=== PATIENT | female | born 1990 | race Caucasian/White ===

== ENCOUNTER → 2016-10-07 | Outpatient (REF) | payer MEDICAID ==
[2016-10-07 13:31] LABS: MEAN CORPUSCULAR HGB CONC 32.6 g/dl (32.0-36.5); WHITE BLOOD COUNT 5.3 K/mm3 (4.0-10.0)
[2016-10-07 14:44] LABS: HIV SCREEN CENTAUR NEGATIVE (NEGATIVE)
== END ==
LOC: M LAB REF 12:49
PROVIDERS: ATTEND Obstetrics & Gynecology
DX: Z32.01 Encounter for pregnancy test, result positive (principal); Z3A.00 Weeks of gestation of pregnancy not specified

== ENCOUNTER → 2016-11-11 | Outpatient (REF) | payer OTHER | LOC: M LAB REF 13:21 | PROVIDERS: ATTEND Advanced Practice Midwife | DX: Z36 Encounter for antenatal screening of mother (principal); Z3A.00 Weeks of gestation of pregnancy not specified ==

== ENCOUNTER → 2016-11-12 | Outpatient (CLI) | payer OTHER ==
[2016-11-12 16:42] LABS: MEAN CORPUSCULAR HEMOGLOBIN 29.7 pg (27.0-33.0); MEAN CORPUSCULAR HGB CONC 33.8 g/dl (32.0-36.5); MEAN CORPUSCULAR VOLUME 87.9 fl (80.0-96.0); WHITE BLOOD COUNT 7.6 K/mm3 (4.0-10.0)
[2016-11-12 16:50] LABS: ALBUMIN 3.7 GM/DL (3.2-5.2); ALBUMIN/GLOBULIN RATIO 1.28 (1.00-1.93); ALKALINE PHOSPHATASE 53 U/L (45-117); ALT/SGPT 15 U/L (12-78); ANION GAP 9 MEQ/L (8-16); AST/SGOT 6 U/L (15-37); BILIRUBIN,TOTAL 0.3 MG/DL (0.2-1.0); BLOOD UREA NITROGEN 6 MG/DL (7-18); CALCIUM LEVEL 8.6 MG/DL (8.5-10.1); CARBON DIOXIDE LEVEL 24 MEQ/L (21-32); CHLORIDE LEVEL 105 MEQ/L (98-107); CREATININE FOR GFR 0.57 MG/DL (0.55-1.02); GLOMERULAR FILTRATION RATE > 60.0 (>60); GLUCOSE, FASTING 95 MG/DL (70-105); POTASSIUM SERUM 3.7 MEQ/L (3.5-5.1); SODIUM LEVEL 138 MEQ/L (136-145); TOTAL PROTEIN 6.6 GM/DL (6.4-8.2); URIC ACID 3.3 MG/DL (2.6-6.0)
== END ==
LOC: M LAB 16:01
PROVIDERS: ATTEND Advanced Practice Midwife
DX: Z36 Encounter for antenatal screening of mother (principal); Z3A.00 Weeks of gestation of pregnancy not specified

== ENCOUNTER → 2017-03-10 | Outpatient (CLI) | payer OTHER ==
[~2017-03-10] MED LIST: AUGM500T34 PO; LABE30TA PO; MOTR200T44 PO; PRENTAB9 PO; TYLE325T5 PO
[2017-03-10 10:44] LABS: MEAN CORPUSCULAR VOLUME 88.1 fl (80.0-96.0); RED CELL DISTRIBUTION WIDTH 12.6 % (11.5-14.5); WHITE BLOOD COUNT 7.9 K/mm3 (4.0-10.0)
== END ==
LOC: M LAB 09:25
PROVIDERS: ATTEND Advanced Practice Midwife
DX: Z36 Encounter for antenatal screening of mother (principal); Z3A.00 Weeks of gestation of pregnancy not specified

== ENCOUNTER 2017-03-27 14:24 | Emergency (ER) | payer OTHER ==
[~2017-03-27] VITALS: Ht 170.2 cm; Wt 95.5 kg
[2017-03-27] MEDS ORDERED: AUGM500T34 PO (16:22)
--- NOTE | 2017-03-27 16:29 | REP ---
Clinical: Trauma. Technique: AP, lateral views of the left wrist. Findings: Lateral view best demonstrates soft tissue swelling. No definite acute fracture is appreciated although injury involving the distal radius cannot be excluded and should be correlated with point of tenderness and mechanism of injury. The carpal bones appear intact. Impression: No definite acute fracture. Soft tissue swelling is appreciated. As above. If the patient remains symptomatic consider reevaluation in 5-7 days. Signed by Manas Mcallister MD 03/27/2017 04:20 P
[2017-03-27] MEDS ORDERED: RABIES IMMUNE GLOBULIN 1500 INTERNATIONAL UNITS/10 ML VIAL (90375) IM ONE (16:30)
[2017-03-27] MEDS ORDERED: RABIES VACCINE HUMAN 2.5 INTERNATIONAL UNITS/ML VIAL (90675) IM ONE (16:30)
[2017-03-27] MEDS ORDERED: ADACEL/BOOSTRIX VACCINE (DIPHTH/PERTUSS/ACELL/TETANUS)0.5ML SYR (90715) IM ONE (16:30)
[2017-03-27 19:01] VITALS: BP 128/70
[2017-05-25] MEDS ORDERED: TYLE325T5 PO (09:55)
[2017-05-25] MEDS ORDERED: MOTR200T44 PO (09:55)
== END 2017-03-27 19:02 | disposition home or self-care (01) ==
LOC: M ED 14:24
DX: O9A.213 Injury, poisoning and certain other consequences of external causes complicating pregnancy, third trimester (principal); S61.552A Open bite of left wrist, initial encounter; W54.0XXA Bitten by dog, initial encounter; Y92.410 Unspecified street and highway as the place of occurrence of the external cause; Y93.89 Activity, other specified; Y99.8 Other external cause status; Z3A.30 30 weeks gestation of pregnancy

== ENCOUNTER 2017-03-29 16:52 | Emergency (ER) | payer OTHER ==
[~2017-03-29] VITALS: Ht 172.7 cm; Wt 101.0 kg
[~2017-03-29 16:52] MED LIST changes: -LABE30TA PO; -MOTR200T44 PO; -PRENTAB9 PO; -TYLE325T5 PO
[2017-03-29 19:38] VITALS: BP 123/76
--- NOTE | 2017-03-29 19:46 | ED PDOC ---
Post-Departure Follow-Up pt has arrived one day early for her rabies prophylaxis Guilherme Barriga Mar 29, 2017 19:46
[2017-05-25] MEDS ORDERED: MOTR200T44 PO (09:55)
[2017-05-25] MEDS ORDERED: TYLE325T5 PO (09:55)
== END 2017-03-29 19:52 | disposition home or self-care (01) ==
LOC: M ED 16:52
DX: S51.852D Open bite of left forearm, subsequent encounter (principal); S61.451D Open bite of right hand, subsequent encounter; W54.0XXD Bitten by dog, subsequent encounter; Y92.89 Other specified places as the place of occurrence of the external cause; Z79.2 Long term (current) use of antibiotics

== ENCOUNTER → 2017-05-05 | Outpatient (REF) | payer OTHER ==
[~2017-05-05] MED LIST changes: +LABE30TA PO; +MOTR200T44 PO; +PRENTAB9 PO; +TYLE325T5 PO
== END ==
LOC: M LAB REF 13:18
PROVIDERS: ATTEND Advanced Practice Midwife
DX: Z36.89 Encounter for other specified antenatal screening (principal); Z3A.39 39 weeks gestation of pregnancy

== ENCOUNTER 2017-05-08 16:37 | Outpatient (CLI) | payer OTHER ==
[~2017-05-08] VITALS: Ht 167.6 cm; Wt 95.0 kg
[~2017-05-08 16:37] MED LIST changes: -LABE30TA PO; -MOTR200T44 PO; -PRENTAB9 PO; -TYLE325T5 PO
[2017-05-08] MEDS ORDERED: PRENTAB9 PO (17:11)
[2017-05-08] MEDS ORDERED: LABE30TA PO (17:11)
[2017-05-08 17:33] VITALS: BP 127/78
[2017-05-08 17:43] LABS: MEAN CORPUSCULAR HEMOGLOBIN 29.6 pg (27.0-33.0); MEAN CORPUSCULAR HGB CONC 34.1 g/dl (32.0-36.5); MEAN CORPUSCULAR VOLUME 86.7 fl (80.0-96.0); PLATELET COUNT, AUTOMATED 292 10^3/uL (150-450); RED CELL DISTRIBUTION WIDTH 12.6 % (11.5-14.5); WHITE BLOOD COUNT 9.9 10^3/uL (4.0-10.0)
[2017-05-08 18:02] LABS: ALT/SGPT 17 U/L (12-78); AST/SGOT 12 U/L (15-37); BILIRUBIN,TOTAL 0.2 MG/DL (0.2-1.0); CREATININE FOR GFR 0.67 MG/DL (0.55-1.02); GLOMERULAR FILTRATION RATE > 60.0 (>60); URIC ACID 4.2 MG/DL (2.6-6.0)
[2017-05-25] MEDS ORDERED: TYLE325T5 PO (09:55)
[2017-05-25] MEDS ORDERED: MOTR200T44 PO (09:55)
== END 2017-05-08 18:35 | disposition home or self-care (01) ==
LOC: M LDO 16:37
PROVIDERS: ATTEND Advanced Practice Midwife
DX: O13.3 Gestational [pregnancy-induced] hypertension without significant proteinuria, third trimester (principal); O47.03 False labor before 37 completed weeks of gestation, third trimester; Z3A.36 36 weeks gestation of pregnancy

== ENCOUNTER → 2017-05-10 | Outpatient (REF) | payer OTHER ==
[~2017-05-10] MED LIST changes: +LABE30TA PO; +MOTR200T44 PO; +PRENTAB9 PO; +TYLE325T5 PO
== END ==
LOC: M LAB REF 11:45
PROVIDERS: ATTEND Advanced Practice Midwife
DX: O09.893 Supervision of other high risk pregnancies, third trimester (principal); Z36.89 Encounter for other specified antenatal screening; Z3A.36 36 weeks gestation of pregnancy

== ENCOUNTER → 2017-09-06 | Outpatient (REF) | payer SELFPAY ==
[2017-09-06 21:10] LABS: INFLUENZA A AMPLIFICATION NEGATIVE (NEGATIVE); INFLUENZA B AMPLIFICATION NEGATIVE (NEGATIVE)
== END ==
LOC: M LAB REF 09:22
DX: J11.1 Influenza due to unidentified influenza virus with other respiratory manifestations (principal)
CPT/HCPCS: 87502

== ENCOUNTER → 2019-01-25 | Outpatient (REF) | payer OTHER, MEDICAID ==
[~2019-01-25] MED LIST changes: +BUTACAP78 PO; +LABE20TAB PO; +LABE300T2 PO; -LABE30TA PO; +MAPA500T2 PO
== END ==
LOC: M LAB REF 13:15
PROVIDERS: ATTEND Obstetrics & Gynecology
DX: Z34.83 Encounter for supervision of other normal pregnancy, third trimester (principal); Z36.85 Encounter for antenatal screening for Streptococcus B

== ENCOUNTER → 2019-01-26 | Outpatient (CLI) | payer OTHER ==
[~2019-01-26] MED LIST changes: +IBUP80TA PO
[2019-01-26 16:51] LABS: ALT/SGPT 11 U/L (12-78); BILIRUBIN,TOTAL 0.3 MG/DL (0.2-1.0); CREATININE FOR GFR 0.74 MG/DL (0.55-1.30); GLOMERULAR FILTRATION RATE > 60.0 (>60); LDH LACTATE DEHYDROGENASE 118 U/L (84-246); URIC ACID 3.8 MG/DL (2.6-6.0)
[2019-01-26 20:06] LABS: URINE TOTAL PROTEIN 23.7 MG/DL (0-12)
== END ==
LOC: M LAB 14:26
PROVIDERS: ATTEND Obstetrics & Gynecology
DX: O14.93 Unspecified pre-eclampsia, third trimester (principal); Z3A.00 Weeks of gestation of pregnancy not specified

== ENCOUNTER 2019-01-28 09:35 | Outpatient (CLI) | payer OTHER ==
[2019-01-28] VITALS (11 sets, daily range): BP systolic 111–142; BP diastolic 58–76
[~2019-01-28] VITALS: Ht 170.2 cm; Wt 99.9 kg
[~2019-01-28 09:35] MED LIST changes: -BUTACAP78 PO; -IBUP80TA PO; -LABE20TAB PO; -MAPA500T2 PO
[2019-01-28] MEDS ORDERED: MAPA500T2 PO (10:01)
[2019-01-28] MEDS ORDERED: LABE20TAB PO (10:10)
[2019-01-28 10:57] LABS: BASO % 0.5 % (0.0-1.0); EOS # 0.1 10^3/uL (0.0-0.50); EOS % 0.7 % (0.0-3.0); HEMATOCRIT 30.1 % (36.0-47.0); HEMOGLOBIN 10.1 g/dl (12.0-15.5); LYMPH # 1.4 10^3/uL (1.5-6.5); LYMPH % 17.6 % (24.0-44.0); MEAN CORPUSCULAR HEMOGLOBIN 29.4 pg (27.0-33.0); MEAN CORPUSCULAR HGB CONC 33.6 g/dl (32.0-36.5); MEAN CORPUSCULAR VOLUME 87.8 fl (80.0-96.0); MONO # 0.6 10^3/uL (0.0-0.8); MONO % 7.9 % (0.0-5.0); NEUTROPHILS # 5.9 10^3/uL (1.8-7.7); NEUTROPHILS % 72.9 % (36.0-66.0); PLATELET COUNT, AUTOMATED 259 10^3/uL (150-450); RED BLOOD COUNT 3.43 10^6/uL (4.00-5.40); WHITE BLOOD COUNT 8.1 10^3/uL (4.0-10.0)
[2019-01-28 11:26] LABS: TOTAL PROTEIN,RANDOM URINE 30.1 MG/DL (0.0-12.0)
[2019-01-28 11:29] LABS: ALT/SGPT 11 U/L (12-78); BILIRUBIN,TOTAL 0.3 MG/DL (0.2-1.0); CREATININE FOR GFR 0.55 MG/DL (0.55-1.30); GLOMERULAR FILTRATION RATE > 60.0 (>60); LDH LACTATE DEHYDROGENASE 116 U/L (84-246); URIC ACID 3.4 MG/DL (2.6-6.0)
[2019-01-28] MEDS ORDERED: ACETAMINOPHEN 500 MG TAB PO ONE (14:30)
[2019-02-01] MEDS ORDERED: BUTACAP78 PO (13:31)
== END 2019-01-28 16:25 | disposition home or self-care (01) ==
LOC: M LDO 09:35
PROVIDERS: ATTEND Obstetrics & Gynecology
DX: O26.893 Other specified pregnancy related conditions, third trimester (principal); R51 Headache; R03.0 Elevated blood-pressure reading, without diagnosis of hypertension; Z3A.36 36 weeks gestation of pregnancy

== ENCOUNTER 2019-02-07 09:54 | Inpatient (IN) | payer OTHER ==
[~2019-02-07] VITALS: Ht 170.2 cm; Wt 101.3 kg
[2019-02-07] VITALS (10 sets, daily range): BP systolic 112–141; BP diastolic 60–79
[~2019-02-07 09:54] MED LIST changes: +BUTACAP78 PO; +LABE20TAB PO; +MAPA500T2 PO
[2019-02-07] MEDS ORDERED: miSOPROStol 50 MCG 1/2 TAB (S0191) PO ONE (11:00)
[2019-02-07] MEDS ORDERED: LACTATED RINGER'S 1000 ML IV ONE (11:00)
[2019-02-07 13:42] LABS: HEMATOCRIT 30.7 % (36.0-47.0); HEMOGLOBIN 10.1 g/dl (12.0-15.5); MEAN CORPUSCULAR HEMOGLOBIN 28.9 pg (27.0-33.0); MEAN CORPUSCULAR HGB CONC 32.9 g/dl (32.0-36.5); MEAN CORPUSCULAR VOLUME 87.7 fl (80.0-96.0); PLATELET COUNT, AUTOMATED 273 10^3/uL (150-450); WHITE BLOOD COUNT 8.6 10^3/uL (4.0-10.0)
[2019-02-07 14:02] LABS: ALT/SGPT 11 U/L (12-78); BILIRUBIN,TOTAL 0.5 MG/DL (0.2-1.0); CREATININE FOR GFR 0.57 MG/DL (0.55-1.30); GLOMERULAR FILTRATION RATE > 60.0 (>60); LDH LACTATE DEHYDROGENASE 128 U/L (84-246); URIC ACID 3.5 MG/DL (2.6-6.0)
[2019-02-07] MEDS: miSOPROStol 50 MCG 1/2 TAB (S0191) PO SCH ×2 (15:04→19:35)
[2019-02-07] MEDS: LR 1,000 ML IV SCH ×2 (16:15→23:21)
[2019-02-08] VITALS (52 sets, daily range): BP systolic 91–149; BP diastolic 50–86
[2019-02-08] MEDS ORDERED: OXYTOCIN DRIP 30 UNITS in APPROPRIATE DILUENT 1 EA IV SCH ×2 (07:00→15:31)
[2019-02-08] MEDS: LR 1,000 ML IV SCH ×2 (07:06→11:24)
[2019-02-08 07:33] LABS: MEAN CORPUSCULAR HEMOGLOBIN 28.4 pg (27.0-33.0); MEAN CORPUSCULAR HGB CONC 32.3 g/dl (32.0-36.5); MEAN CORPUSCULAR VOLUME 88.1 fl (80.0-96.0); PLATELET COUNT, AUTOMATED 243 10^3/uL (150-450); RED BLOOD COUNT 3.52 10^6/uL (4.00-5.40); WHITE BLOOD COUNT 8.7 10^3/uL (4.0-10.0)
[2019-02-08 07:54] LABS: ALT/SGPT 11 U/L (12-78); BILIRUBIN,TOTAL 0.5 MG/DL (0.2-1.0); CREATININE FOR GFR 0.51 MG/DL (0.55-1.30); GLOMERULAR FILTRATION RATE > 60.0 (>60); LDH LACTATE DEHYDROGENASE 124 U/L (84-246); URIC ACID 3.8 MG/DL (2.6-6.0)
[2019-02-08] MEDS ORDERED: FENTANYL 2MCG/ML ROPIVACAINE 0.2% IN 0.9% NACL 100ML IVBAG As Ordered ONE (11:03)
[2019-02-08] MEDS ORDERED: EPIDURAL/PCA KEYS XX PRN (13:15)
[2019-02-08] MEDS ORDERED: EPIDURAL COMMENT XX SCH (13:15)
[2019-02-08] MEDS ORDERED: LACTATED RINGER'S 1000 ML IV PRN (13:15)
[2019-02-08] MEDS ORDERED: REFRIGERATOR IV KEYS XX PRN (13:15)
[2019-02-08] MEDS ORDERED: NALOXONE INJ 0.4 MG/1 ML VIAL (J2310) IV PRN (13:15)
[2019-02-08] MEDS ORDERED: ONDANSETRON 4MG/2ML VIAL (J2405) IV PRN (13:15)
[2019-02-08] MEDS ORDERED: ePHEDrine SULFATE 25 MG/5 ML(5MG/ML) SYRINGE IV PRN (13:15)
[2019-02-08] MEDS ORDERED: diphenhydrAMINE INJ 50MG/ML VIAL (J1200) IV PRN (13:15)
[2019-02-08] MEDS ORDERED: FENTANYL/ROPIVACAINE/NACL BAG 100 ML EPIDURAL SCH (13:15)
--- NOTE | 2019-02-08 15:37 | DN ---
DATE: 02/07/2019 Emmy is a 28-year-old, 4, para 2-0-2-2 at 38-5/7 weeks gestation. She was admitted to labor and delivery for induction of labor due to preeclampsia. Misoprostol and IV Pitocin was used and labor did ensue. She did utilize an epidural for labor coping. She progressed to complete dilation at 1343 hours and pushed to a normal spontaneous vaginal delivery at 1505 hours. OA position with restitution to LOT position, nuchal cord times one tight, reduced with somersault maneuver at the time of delivery. female had mouth and nares bulb suctioned. She was then placed on maternal abdomen crying and active for maternal bonding. The cord was clamped times two once pulsations ceased and cut by the father of the baby under my direction. Spontaneous expulsion of an intact placenta with three-vessel cord by Webster mechanism was at 1510 hours. Uterine hemostasis achieved with IV Pitocin rapid infusion and uterine fundal massage. Estimated blood loss 350 mL. Perineum and vagina inspected and noted to have a first-degree midline laceration that was repaired with 3-0 Rapide in the usual fashion. Mom is going to breastfeed. The family have named her Janie. scores were 8 and 9. She weighed 7 pounds 9 ounces, 3430 grams. At the close of delivery, lap counts, needle counts, and instrument counts were correct and verified.
[2019-02-08] MEDS ORDERED: ACETAMINOPHEN TAB 650MG DOSE (2X325MG) PO PRN (15:45)
[2019-02-08] MEDS ORDERED: RHOGAM 300 MCG (1500 IU) INJ (J2790) IM SCH (15:45)
[2019-02-08] MEDS ORDERED: DOCUSATE SODIUM 100 MG CAP PO PRN (15:45)
[2019-02-08] MEDS ORDERED: ACETAMINOPHEN 500 MG TAB PO PRN (15:45)
[2019-02-08] MEDS ORDERED: IBUPROFEN 600 MG TAB PO PRN (15:45)
[2019-02-08] MEDS ORDERED: MEASLES,MUMPS,RUBELLA VACCINE INJ (MMR-II) (90707) SC SCH (15:45)
[2019-02-08] MEDS ORDERED: DIBUCAINE 1% OINTMENT 30GM TOP PRN (15:45)
[2019-02-08] MEDS ORDERED: SLF 3 ML SYR IV PRN (16:15)
[2019-02-08] MEDS: IBUPROFEN 800 MG TAB PO PRN (22:14)
[2019-02-08] MEDS: SLF 3 ML SYR IV SCH (22:15)
[2019-02-09 06:00] VITALS: BP 125/74
[2019-02-09] MEDS: IBUPROFEN 800 MG TAB PO PRN ×2 (06:29→19:29)
[2019-02-09] MEDS: SLF 3 ML SYR IV SCH ×2 (06:30→14:00)
--- NOTE | 2019-02-09 06:51 | IPNPDOC ---
Text Note Date of Service The patient was seen on 02/09/19. NOTE Feels well. Adequate pain management. Breast/bottle feeding. Voiding VSS, afebrile, normotensive Breasts soft, nipples intact Fundus firm, NT, down 1 FB Lochia rubra light without odor Perineum intact PP #1 Routine care. Anticipate D/C in am VS,Fishbone, I+O VS, Fishbone, I+O Laboratory Tests 02/08/19 07:17 Red Blood Count 3.52 L, Mean Corpuscular Volume 88.1, Mean Corpuscular Hemoglobin 28.4, Mean Corpuscular Hemoglobin Concent 32.3, Red Cell Distribution Width 12.5, Aspartate Amino Transf (AST/SGOT) 14, Alanine Aminotransferase (ALT/SGPT) 11 L, Lactate Dehydrogenase 124, Total Bilirubin 0.5, Uric Acid 3.8 Vital Signs Date Time Temp Pulse Resp B/P (MAP) Pulse Ox O2 Delivery O2 Flow Rate FiO2 02/09/19 06:00 97.9 63 18 125/74 (91) 02/08/19 08:36 100 I&O- Last 24 Hours up to 6 AM 02/09/19 06:00 Intake Total 3533.0 ml Output Total 1450 ml Balance 2083.0 ml Carla Mon CNM Feb 09, 2019 06:51
[2019-02-09] MEDS: PRENATAL VITAMINS CHEWABLE TABLET PO SCH (08:35)
[2019-02-09 18:24] VITALS: BP 135/80
[2019-02-10 06:25] VITALS: BP 139/76
[2019-02-10] MEDS: IBUPROFEN 800 MG TAB PO PRN (08:09)
[2019-02-10] MEDS: PRENATAL VITAMINS CHEWABLE TABLET PO SCH (08:09)
--- NOTE | 2019-02-10 11:20 | NUR ---
PPD#2 s/p Pain well controlled, voiding spontaneously, tolerating regular diet, ambulating without difficulty, lochia decreasing and minimal. No MARTINEZ,cp,sob. Breast feeding. VSS,normotensive, normal HR, afebrile Abd: soft,nt,nd Ext: no c/c/e A/P: PPD#2. Meeting d/c criteria. -Routine instructions/precautions reviewed. -Follow up in 6-8 weeks or sooner PRN. Darien Hardwick DO
[2019-02-10] MEDS ORDERED: IBUP80TA PO (11:22)
== END 2019-02-10 13:40 | disposition home or self-care (01) | DRG 560 ==
LOC: M LDI 09:54 → M OBS 02-08 18:08
PROVIDERS: ADMIT Obstetrics & Gynecology; ATTEND Advanced Practice Midwife
PROC: 3E0P7GC Introduction of Other Therapeutic Substance into Female Reproductive, Via Natural or Artificial Opening (ICD-10-PCS; 2019-02-07)
PROC: 10E0XZZ Delivery of Products of Conception, External Approach (ICD-10-PCS; principal; 2019-02-08)
PROC: 0HQ9XZZ Repair Perineum Skin, External Approach (ICD-10-PCS; 2019-02-08)
PROC: 10907ZC Drainage of Amniotic Fluid, Therapeutic from Products of Conception, Via Natural or Artificial Opening (ICD-10-PCS; 2019-02-08)
DX: O14.94 Unspecified pre-eclampsia, complicating childbirth (principal); Z3A.38 38 weeks gestation of pregnancy; Z37.0 Single live birth; O69.1XX0 Labor and delivery complicated by cord around neck, with compression, not applicable or unspecified; O70.0 First degree perineal laceration during delivery

== ENCOUNTER → 2019-06-26 | Outpatient (REF) | payer MEDICAID ==
[~2019-06-26] MED LIST changes: +IBUP80TA PO
== END ==
LOC: M LAB REF 17:03
PROVIDERS: ATTEND Nurse Practitioner Women's Health
DX: O36.80X0 Pregnancy with inconclusive fetal viability, not applicable or unspecified (principal)

== ENCOUNTER 2022-09-22 16:39 | Emergency (ER) | payer OTHER ==
[~2022-09-22] VITALS: Ht 170.2 cm; Wt 100.0 kg
[2022-09-22 16:39] VITALS: BP 148/79
[~2022-09-22 16:39] MED LIST changes: -LABE300T2 PO; +LABE300T55 PO
== END 2022-09-22 19:11 | disposition left against medical advice (07) ==
LOC: M ED 16:39
DX: R07.9 Chest pain, unspecified (principal); Z53.21 Procedure and treatment not carried out due to patient leaving prior to being seen by health care provider

== ENCOUNTER 2022-09-25 16:42 | Emergency (ER) | payer OTHER, SELFPAY ==
[~2022-09-25] VITALS: Ht 170.2 cm; Wt 98.6 kg
[2022-09-25 17:25] LABS: BASO # 0.1 10^3/uL (0.0-0.2); EOS # 0.1 10^3/uL (0.0-0.5); EOS % 1.9 % (0.0-3.0); HEMATOCRIT 29.4 % (36.0-47.0); HEMOGLOBIN 8.9 g/dl (12.0-15.5); MEAN CORPUSCULAR HEMOGLOBIN 24.7 pg (27.0-33.0); MEAN CORPUSCULAR HGB CONC 30.3 g/dl (32.0-36.5); MEAN CORPUSCULAR VOLUME 81.7 fl (80.0-96.0); MONO # 0.6 10^3/uL (0.0-0.8); MONO % 11.5 % (2.0-8.0); NEUTROPHILS # 3.4 10^3/uL (1.5-8.5); NEUTROPHILS % 66.2 % (36.0-66.0); PLATELET COUNT, AUTOMATED 343 10^3/uL (150-450); WHITE BLOOD COUNT 5.2 10^3/uL (4.0-10.0)
[2022-09-25 17:52] LABS: LIPASE 35 U/L (12-53)
[2022-09-25 17:53] LABS: CPK CREATINE PHOSPHOKINASE 56 U/L (34-145)
[2022-09-25 17:57] LABS: ALBUMIN 3.7 G/DL (3.2-5.2); ALKALINE PHOSPHATASE 289 U/L (46-116); ALT/SGPT 496 U/L (7.0-40); AST/SGOT 756 U/L (<34); BILIRUBIN,DIRECT 0.7 MG/DL (<0.4); BILIRUBIN,TOTAL 1.3 MG/DL (0.3-1.2); BLOOD UREA NITROGEN 11 MG/DL (9-23); CALCIUM LEVEL 8.6 MG/DL (8.5-10.1); CARBON DIOXIDE LEVEL 25 MMOL/L (20-31); CHLORIDE LEVEL 108 MMOL/L (98-107); CK-MB VALUE MASS < 1.0 NG/ML (<3.6); CREATININE FOR GFR 0.76 MG/DL (0.55-1.30); GLOMERULAR FILTRATION RATE > 60.0 (>60); GLUCOSE, FASTING 114 MG/DL (60-100); MB/CK RELATIVE INDEX 1.78 (< OR =4); POTASSIUM SERUM 3.7 MMOL/L (3.5-5.1); SODIUM LEVEL 140 MMOL/L (136-145); TOTAL PROTEIN 6.8 G/DL (5.7-8.2)
[2022-09-25 18:06] LABS: HCG, SERUM QUALITATIVE NEGATIVE (NEGATIVE)
[2022-09-25 19:25] VITALS: BP 153/86
[2022-09-25] MEDS ORDERED: GI COCKTAIL 50ML BTL(HYOSCYAMINE/MAALOX/LIDOCAINE VISCOUS)(1:3:1) PO ONE (19:30)
[2022-09-25] MEDS ORDERED: OMEP40CA4 PO (19:59)
== END 2022-09-25 20:19 | disposition home or self-care (01) ==
LOC: M ED 16:42
DX: K80.20 Calculus of gallbladder without cholecystitis without obstruction (principal); K76.0 Fatty (change of) liver, not elsewhere classified; D64.9 Anemia, unspecified; R07.9 Chest pain, unspecified

== ENCOUNTER → 2022-12-06 | Outpatient (CLI) | payer OTHER ==
[~2022-12-06] MED LIST changes: +OMEP40CA4 PO
== END ==
LOC: M PLALAB 14:51
PROVIDERS: ATTEND Advanced Practice Midwife
DX: O36.80X0 Pregnancy with inconclusive fetal viability, not applicable or unspecified (principal)

== ENCOUNTER → 2022-12-08 | Outpatient (CLI) | payer OTHER | LOC: M PLALAB 10:52 | PROVIDERS: ATTEND Advanced Practice Midwife | DX: O36.80X0 Pregnancy with inconclusive fetal viability, not applicable or unspecified (principal) ==

== ENCOUNTER → 2022-12-09 | Outpatient (CLI) | payer OTHER | LOC: M RAD 13:58 | PROVIDERS: ATTEND Advanced Practice Midwife | DX: O36.80X0 Pregnancy with inconclusive fetal viability, not applicable or unspecified (principal) ==